=== PATIENT | female | born 1930 | race Caucasian/White ===

== ENCOUNTER 2017-07-28 10:55 | Emergency (ER) | payer MEDICARE ==
[~2017-07-28] VITALS: Ht 162.6 cm; Wt 90.7 kg
[~2017-07-28 10:55] MED LIST: ALLOPURINOL300 MG PO; ASPIR-LOW81 MG PO; COUMADIN3 MG PO; DOXEPIN HCL10 MG; DOXEPIN HCL50 MG PO; DULCOLAX STOOL100 MG PO; GELNIQUE92 GM; GLIMEPIRIDE1 MG PO; KLOR-CON 1010 MEQ PO; LASIX20 MG PO; LASIX40 MG PO; LEVOTHYROXINE50 MCG PO; MAG-OXIDE400 MG PO; MECLIZINE HCL12.5 MG PO; METAXALONE800 MG PO; METOPROLOL SUCC25 MG; MULTI-VITAMIN1 EACH; NITROGLYCERIN0.4 MG SL; NORCO 10MG-325MG1 EA PO; OMEPRAZOLE20 M1 PO; OXYBUTYNIN CHLOR5 MG PO; PANTOPRAZOLE SO40 MG PO; PLAVIX75 MG PO; POTASSIUM CHLO20 ME1 PO; PRAVASTATIN SOD40 MG PO; SENNA-S TABLET1 EA PO; TEKTURNA HCT 31 EACH PO; TEKTURNA300 MG PO; TOPROL XL25 MG PO; TOPROL XL50 MG PO; WARFARIN SODIU2.5 MG PO; WARFARIN SODIUM2 MG PO; ZOCOR20 MG PO; ZOFRAN ODT4 MG
[2017-07-28 11:43] LABS: BASOPHILS # (AUTO) 0.1 (0.0-0.1); BASOPHILS % 0.6 % (0.0-1.0); EOSINOPHILS # (AUTO) 0.2 (0.0-0.4); HEMATOCRIT 39.5 % (34.2-44.1); HEMOGLOBIN 12.1 g/dL (12.0-16.0); LYMPHOCYTES # (AUTO) 1.6 (1.0-3.2); LYMPHOCYTES % 15.4 % (18.0-39.1); MEAN CORPUSCULAR HEMOGLOBIN 24.5 pg (28-32); MEAN CORPUSCULAR HGB CONC 30.6 g/dL (31-35); MEAN CORPUSCULAR VOLUME 80.1 fL (81-99); MONOCYTES % 9.1 % (4.4-11.3); NEUTROPHILS # (AUTO) 7.6 (2.1-6.9); NEUTROPHILS % 72.5 % (38.7-80.0); PLATELET COUNT 228 x10e3/uL (140-360); RED BLOOD COUNT 4.93 x10e6/uL (3.6-5.1); RED CELL DISTRIBUTION WIDTH 17.3 % (11.7-14.4)
--- NOTE | 2017-07-28 12:25 | Diagnostic Imaging Report ---
History:Weakness, vertigo Comparison studies:None Technique: Axial images were obtained from the skull base to the vertex. Coronal and sagittal images reconstructed from the axial data. Intravenous contrast: None Findings: Scalp/skull: No abnormalities. Extra-axial spaces: Prominent subarachnoid spaces along the frontal convexity. No masses. No fluid collections. Brain sulci: Mildly prominent. Ventricles: Mild compensatory dilatation. No hydrocephalus. Parenchyma: A few mild hypodensities in the supratentorial white matter are small vessel ischemic changes. No masses, hemorrhage, acute or chronic cortical vascular insults. Sellar/suprasellar region: No abnormalities. Craniocervical junction: Patent foramen magnum. No Chiari one malformation. Incidental findings: Atherosclerotic calcifications in the carotid siphons . Partial opacification of the right mastoid air cells. Impression: No acute abnormalities. Chronic findings: 1. Moderate generalized volume loss. 2. Mild supratentorial white matter small vessel ischemic changes. Signed by: Dr. Jamaal Alfaro M.D. on 07/28/2017 5:28 PM
--- NOTE | 2017-07-28 12:34 | Diagnostic Imaging Report ---
PROCEDURE:ABDOMEN ACUTE SERIES W/PA CXR TECHNIQUE:Supine and upright AP abdomen; PA chest INDICATION:Constipation; weakness COMPARISON:None. FINDINGS: Lungs: Lungs are clear and symmetric with inflated. No pleural effusions. Normal heart size. 2-lead pacemaker of the left hemithorax; leads intact. Intact skeleton. Bilateral shoulder arthroplasty. Normal bowel gas pattern. Cholecystectomy clips. No evidence of organomegaly or ascites. Multilevel degenerative disc disease. CONCLUSION: No acute abnormality of the chest or abdomen. Dictated by: Cholo Sandoval M.D. on 07/28/2017 at 12:38 Electronically approved by: Cholo Sandoval M.D. on 07/28/2017 at 12:38
[2017-07-28 13:05] LABS: ALANINE AMINOTRANSFERASE 11 IU/L (0-55); ALBUMIN 3.8 g/dL (3.5-5.0); ALBUMIN/GLOBULIN RATIO 1.2 (0.8-2.0); ALKALINE PHOSPHATASE 79 IU/L (40-150); ANION GAP 14.9 mmol/L (8-16); BLOOD UREA NITROGEN 20 mg/dL (7-26); BUN/CREATININE RATIO 13 (6-25); CARBON DIOXIDE 32 mmol/L (22-29); CHLORIDE 96 mmol/L (98-107); CREATINE KINASE 43 IU/L (29-168); CREATININE, SERUM 1.55 mg/dL (0.57-1.11); EST GLOMERULAR FILTRATION RATE 32 ML/MIN (60-); GLUCOSE 260 mg/dL (74-118); MAGNESIUM 1.8 MG/DL (1.3-2.1); POTASSIUM 3.9 mmol/L (3.5-5.1); SODIUM 139 mmol/L (136-145)
[2017-07-28 13:27] LABS: INR 1.1; PARTIAL THROMBOPLASTIN TIME 24.2 seconds (23.8-35.5); PROTHROMBIN TIME 12.5 seconds (11.9-14.5)
[2017-07-28] MEDS ORDERED: CITRATE OF MAGNESIA 300ML BOTTLE PO NR (15:00)
[2017-07-28] MEDS ORDERED: MINERAL OIL 132 ML BTL PR ONE (15:45)
[2017-07-28] MEDS ORDERED: LIDOCAINE JELLY 2% 10ML URO-JET TOP PRN (16:15)
[2017-07-28] MEDS ORDERED: LIDOCAINE HCL 2% JELLY 5 ML TUBE ONE (16:15)
[2017-07-28] MEDS: LIDOCAINE VISC 2% SOLN 15 ML UDC TOP ONE ×2 (16:27→16:28)
== END 2017-07-28 18:12 | disposition home or self-care (01) ==
LOC: ER 10:55
DX: R42 Dizziness and giddiness (principal); R55 Syncope and collapse; K59.00 Constipation, unspecified; I10 Essential (primary) hypertension; E11.9 Type 2 diabetes mellitus without complications; I50.9 Heart failure, unspecified; K21.9 Gastro-esophageal reflux disease without esophagitis; Z95.0 Presence of cardiac pacemaker; Z95.5 Presence of coronary angioplasty implant and graft
CPT/HCPCS: 36415; 70450; 74022; 80053; 82550; 82553; 83735; 84484; 85025; 85610; 85730; 93005; 99284; J2001

== ENCOUNTER → 2017-10-25 | Outpatient (CLI) | payer MEDICARE, OTHER ==
[~2017-10-25] MED LIST changes: +IOPAMIDOL 370 MG/ML 200 ML INFUS..BTL INJ ONE; +SODIUM CHLORIDE 0.9% 250ML 500 ML ONE; +SODIUM CHLORIDE 0.9% 50ML 50 ML ONE
[2017-10-25 12:42] LABS: CREATININE, SERUM 1.31 mg/dL (0.57-1.11)
== END ==
LOC: CT 11:35
PROVIDERS: ATTEND Surgery
DX: R22.1 Localized swelling, mass and lump, neck (principal)
CPT/HCPCS: 36415; 70491; 82565; 84520; 96360; J7050; Q9967

== ENCOUNTER 2017-10-28 10:45 | Emergency (ER) | payer MEDICARE, OTHER ==
[~2017-10-28] VITALS: Ht 162.6 cm; Wt 90.7 kg
[~2017-10-28 10:45] MED LIST changes: -IOPAMIDOL 370 MG/ML 200 ML INFUS..BTL INJ ONE; -SODIUM CHLORIDE 0.9% 250ML 500 ML ONE; -SODIUM CHLORIDE 0.9% 50ML 50 ML ONE
== END 2017-10-28 13:17 | disposition home or self-care (01) ==
LOC: ER 10:45
DX: R06.00 Dyspnea, unspecified (principal); E07.9 Disorder of thyroid, unspecified
CPT/HCPCS: 99283

== ENCOUNTER 2017-11-21 11:04 | Emergency (ER) | payer MEDICARE, OTHER ==
[~2017-11-21] VITALS: Ht 162.6 cm; Wt 90.7 kg
[2017-11-21 12:31] LABS: BASOPHILS % 0.4 % (0.0-1.0); EOSINOPHILS # (AUTO) 0.2 (0.0-0.4); EOSINOPHILS % 2.2 % (0.0-6.0); HEMATOCRIT 38.7 % (34.2-44.1); HEMOGLOBIN 11.8 g/dL (12.0-16.0); LYMPHOCYTES # (AUTO) 1.7 (1.0-3.2); LYMPHOCYTES % 16.8 % (18.0-39.1); MEAN CORPUSCULAR HEMOGLOBIN 24.3 pg (28-32); MEAN CORPUSCULAR HGB CONC 30.5 g/dL (31-35); MEAN CORPUSCULAR VOLUME 79.8 fL (81-99); MONOCYTES # (AUTO) 1.3 (0.2-0.8); NEUTROPHILS # (AUTO) 6.7 (2.1-6.9); NEUTROPHILS % 67.2 % (38.7-80.0); PLATELET COUNT 238 x10e3/uL (140-360); RED BLOOD COUNT 4.85 x10e6/uL (3.6-5.1); RED CELL DISTRIBUTION WIDTH 16.6 % (11.7-14.4)
[2017-11-21 12:55] LABS: ALBUMIN 3.6 g/dL (3.5-5.0); ANION GAP 18.2 mmol/L (8-16); CALCIUM 10.4 mg/dL (8.4-10.2); CREATININE, SERUM 1.38 mg/dL (0.57-1.11); POTASSIUM 4.2 mmol/L (3.5-5.1)
[2017-11-21 12:56] LABS: ALBUMIN/GLOBULIN RATIO 1.1 (0.8-2.0)
[2017-11-21 13:05] LABS: INR 2.61; PROTHROMBIN TIME 29.8 seconds (11.9-14.5)
[2017-11-21] MEDS ORDERED: SODIUM CHLORIDE 0.9% 1000ML 1,000 ML IV STA (14:25)
[2017-11-21] MEDS ORDERED: CLINDAMYCIN PHOS 900MG/ 50ML 50 ML IV STA (16:21)
== END 2017-11-21 18:33 | disposition home or self-care (01) ==
LOC: ER 11:04
DX: L03.115 Cellulitis of right lower limb (principal); R26.2 Difficulty in walking, not elsewhere classified; E11.9 Type 2 diabetes mellitus without complications; Z85.72 Personal history of non-Hodgkin lymphomas
CPT/HCPCS: 36415; 80053; 83605; 85025; 85610; 93971; 99284; J7030

== ENCOUNTER 2017-12-15 01:59 | Inpatient (IN) | payer MEDICARE, OTHER ==
[~2017-12-15] VITALS: Ht 162.6 cm; Wt 85.8 kg
[2017-12-15] MEDS ORDERED: ONDANSETRON HCL INJ 2 MG/ML VIAL IV STA (02:26)
[2017-12-15 02:27] LABS: EOSINOPHILS # (AUTO) 0.2 (0.0-0.4); EOSINOPHILS % 0.3 % (0.0-6.0); HEMATOCRIT 41.6 % (34.2-44.1); HEMOGLOBIN 13.1 g/dL (12.0-16.0); LYMPHOCYTES # (AUTO) 1.6 (1.0-3.2); LYMPHOCYTES % 2.9 % (18.0-39.1); MEAN CORPUSCULAR HGB CONC 31.5 g/dL (31-35); MEAN CORPUSCULAR VOLUME 79.5 fL (81-99); MONOCYTES # (AUTO) 0.3 (0.2-0.8); MONOCYTES % 0.5 % (4.4-11.3); NEUTROPHILS # (AUTO) 44.7 (2.1-6.9); PLATELET COUNT 158 x10e3/uL (140-360); RED BLOOD COUNT 5.23 x10e6/uL (3.6-5.1); RED CELL DISTRIBUTION WIDTH 17.5 % (11.7-14.4)
[2017-12-15] MEDS ORDERED: APIXABAN PO (02:31)
[2017-12-15] MEDS ORDERED: VITAMIN D32000 UNI1 PO (02:32)
[2017-12-15] MEDS ORDERED: DRISDOL PO (02:33)
[2017-12-15] MEDS ORDERED: ROXICODONE15 MG PO (02:34)
[2017-12-15] MEDS ORDERED: SIMVASTATIN20 MG PO (02:35)
[2017-12-15] MEDS ORDERED: SENOKOT8.6 MG PO (02:35)
[2017-12-15] MEDS ORDERED: JANUVIA100 MG PO (02:36)
[2017-12-15] MEDS ORDERED: LEVOTHYROXINE88 MCG PO (02:37)
[2017-12-15] MEDS ORDERED: DOXEPIN HCL25 MG PO (02:37)
[2017-12-15] MEDS ORDERED: LASIX40 MG PO (02:38)
[2017-12-15] MEDS ORDERED: ULORIC40 MG PO (02:38)
[2017-12-15] MEDS ORDERED: MECLIZINE HCL25 MG PO (02:39)
[2017-12-15] MEDS ORDERED: MAGNESIUM OXID400 MG PO (02:39)
[2017-12-15] MEDS ORDERED: TOPROL XL50 MG PO (02:40)
[2017-12-15] MEDS ORDERED: OXYBUTYNIN CHLOR5 M1 PO (02:41)
[2017-12-15] MEDS ORDERED: ZOFRAN ODT4 MG PO (02:41)
[2017-12-15] MEDS ORDERED: PANTOPRAZOLE SO40 MG PO (02:42)
[2017-12-15] MEDS ORDERED: OXYBUTYNIN CHLOR5 MG PO (02:42)
[2017-12-15 02:43] LABS: CLARITY,URINE CLOUDY (CLEAR); COLOR,URINE YELLOW (YELLOW); LEUKOCYTE ESTERASE ,URINE 2+ (NEGATIVE); NITRITE,URINE NEGATIVE (NEGATIVE)
[2017-12-15] MEDS ORDERED: POTASSIUM CHLO10 ME1 PO (02:43)
[2017-12-15 02:44] LABS: BACTERIA,URINE MODERATE /HPF; BILIRUBIN,URINE NEGATIVE (NEGATIVE); EPITHELIAL CELLS,URINE FEW /LPF; KETONES,URINE NEGATIVE (NEGATIVE); PROTEIN,URINE DIPSTICK TRACE (NEGATIVE); RENAL EPITHELIAL CELLS,URINE FEW; TRANSITIONAL EPI CELLS,URINE MODERATE; URINE UROBILINOGEN 0.2 mg/dL (0.2 - 1); WBC,URINE (MAN) >50 /HPF (0-5)
[2017-12-15] MEDS ORDERED: PROCHLORPERAZIN10 MG PO (02:45)
[2017-12-15 02:47] LABS: ALBUMIN 3.5 g/dL (3.5-5.0); ALBUMIN/GLOBULIN RATIO 1.5 (0.8-2.0); ANION GAP 17.6 mmol/L (8-16); CALCIUM 9.7 mg/dL (8.4-10.2); CREATININE, SERUM 1.49 mg/dL (0.57-1.11); POTASSIUM 3.6 mmol/L (3.5-5.1)
[2017-12-15 02:53] LABS: CREATINE KINASE MB 0.8 ng/mL (0-5.0)
--- NOTE | 2017-12-15 03:04 | Diagnostic Imaging Report ---
EXAMINATION: CHEST SINGLE (PORTABLE) INDICATION: Palpitations. COMPARISON: Chest CT 01/15/2017 FINDINGS: AP view TUBES and LINES: Left chest wall cardiac pacer with intact leads overlying the right atrium and right ventricle. Right upper extremity PICC tip overlies the SVC. LUNGS: Lungs are well inflated. Lungs are clear. There is no evidence of pneumonia or pulmonary edema. PLEURA: No pleural effusion or pneumothorax. HEART AND MEDIASTINUM: The cardiomediastinal silhouette is unremarkable. Artery stent. Aortic arch calcifications. BONES AND SOFT TISSUES: No acute osseous lesion. Bilateral shoulder prostheses. Soft tissues are unremarkable. UPPER ABDOMEN: No free air under the diaphragm. IMPRESSION: No acute thoracic abnormality. Signed by: DR. Pancho Landin MD on 12/15/2017 3:01 AM
[2017-12-15] MEDS ORDERED: CEFTRIAXONE SOD 1 GM VIAL IV SCH (03:30)
[2017-12-15 03:34] LABS: BAND NEUTROPHILS % (MANUAL) 2 %; HYPERSEGMENTED NEUTROPHILS FEW; LYMPHOCYTES % (MANUAL) 6 % (19-48); MONOCYTES % (MANUAL) 2 % (3.4-9.0); NEUTROPHILS % (MANUAL) 90 % (40-74); PLATELET ESTIMATE ADEQUATE; PLATELET MORPHOLOGY COMMENT FEW LARGE; RBC MORPHOLOGY COMMENT NORMAL
[2017-12-15] MEDS ORDERED: PROCHLORPERAZINE MALEATE TAB 10 MG TAB PO PRN (03:45)
[2017-12-15] MEDS ORDERED: ERGOCALCIFEROL 50,000 UNIT CAP PO SCH (03:45)
[2017-12-15] MEDS ORDERED: DEXTROSE 50% SYRINGE 50 ML IV PRN (03:45)
[2017-12-15] MEDS ORDERED: SODIUM CHLORIDE 0.9% 1000ML 1,000 ML IV ONE (03:45)
[2017-12-15] MEDS ORDERED: MECLIZINE HCL 12.5 MG TAB PO PRN (03:45)
[2017-12-15 04:00] VITALS: BP 134/63
[2017-12-15] MEDS: INSULIN REGULAR, HUMAN 100 UNIT/1 ML 3ML VIAL SQ SCH ×4 (07:30→21:00)
[2017-12-15] MEDS: LEVOTHYROXINE SODIUM 88 MCG TAB PO SCH (07:30)
[2017-12-15 08:01] VITALS: BP 141/63
[2017-12-15] MEDS ORDERED: FUROSEMIDE 40 MG TAB PO SCH (09:00)
[2017-12-15 09:35] VITALS: BP 141/63
[2017-12-15] MEDS: OXYBUTYNIN CHLORIDE 5 MG TAB PO SCH (09:50)
[2017-12-15] MEDS: MAGNESIUM OXIDE 400 MG TAB PO SCH ×2 (09:55→17:00)
[2017-12-15] MEDS: FEBUXOSTAT 80 MG TAB PO SCH (09:55)
[2017-12-15] MEDS: POTASSIUM CHLORIDE 10MEQ EA PO SCH ×2 (09:55→17:00)
[2017-12-15] MEDS: SENNOSIDES 8.6 MG TAB PO SCH ×2 (09:55→17:00)
[2017-12-15] MEDS: OXYBUTYNIN CHLORIDE XL 5 MG TAB PO SCH (09:55)
[2017-12-15] MEDS: METOPROLOL SUCCINATE 50 MG TAB XL PO SCH (09:55)
[2017-12-15] MEDS: PANTOPRAZOLE SOD 40 MG TABEC PO SCH (09:55)
[2017-12-15] MEDS: APIXAB 2.5 MG TABLET PO SCH ×2 (09:55→18:09)
[2017-12-15] MEDS: CHOLECALCIFEROL 1,000 UNIT TAB PO SCH (09:55)
--- NOTE | 2017-12-15 10:02 | History and Physical ---
PRIMARY CARE PROVIDER: Dr. Tracy Escamilla CHIEF COMPLAINT: Severe leukocytosis secondary to Neupogen treatment with non-Hodgkin's lymphoma recently treated with chemotherapy associated with urinary tract infection and hematuria. SUMMARY: Patient is an 87-year-old female who was admitted at [facility] for non-Hodgkin's lymphoma treatment. The patient did receive aggressive chemotherapy at the facility. Chemotherapy was started last and then went home on Tuesday. Apparently, she was having increase episode of dizziness and not feeling well, palpitations, fever, which brought the patient to the emergency room for evaluation. Patient's WBC was 52.28. The patient was given Neupogen on her chemotherapy treatment. Patient also has a urinalysis showing that she has 2+ leukocyte esterase with greater than 50 wbcs along with trace blood. The patient also had a chest x-ray done without any gross infiltrate or acute abnormality. The patient's condition was discussed with her oncologist at [facility], Dr. Weinberg. He recommended the patient to be admitted to the hospital for IV antibiotic treatment given that the patient recently had chemotherapy and also monitoring the leukocytosis. The patient is otherwise stable at this time. PAST MEDICAL HISTORY: Non-Hodgkin's lymphoma diagnosed in 2016, diabetes, type 2, on insulin therapy, chronic atrial fibrillation, anticoagulant therapy, left upper chest permanent pacemaker, dyslipidemia, hypertension, obesity, chronic kidney disease, gout, osteoarthritis, chronic pain syndrome, opioid dependency. PAST SURGICAL HISTORY: Total right knee replacement, permanent pacemaker, appendectomy, cholecystectomy, multiple lower back surgeries, rotator cuff repair, and supraclavicular lymph node biopsy was diagnosed. The patient with lymphoma. ALLERGIES: ADHESIVE TAPE, ALLOPURINOL, BUSPIRONE, CODEINE, ERYTHROMYCIN BASE, NEXIUM, PREVACID, REGLAN, AND PENTAZOCINE. HOME MEDICATIONS: Patient on doxepin, Uloric, Lasix, levothyroxine, magnesium oxide, meclizine, metoprolol, ondansetron, oxybutynin, oxycodone, Protonix, potassium, Senokot, simvastatin, Januvia, Eliquis, . REVIEW OF SYSTEMS: As above. PHYSICAL EXAMINATION VITAL SIGNS: Temperature is 97.2, blood pressure 141/63, pulse rate 74, respirations 20. GENERAL: The patient is not in acute distress. She is awake. HEENT: Normocephalic, anicteric and anicteric. NECK: Supple grossly. PULMONARY: Diminished breath sounds without any wheezing. CARDIOVASCULAR: Regular rate and rhythm. ABDOMEN: Soft and obese. EXTREMITIES: Right PICC line in right upper extremity. Lower extremities with no edema. No cyanosis. NEUROLOGICAL: No focal deficits. LABORATORY: WBC is 57.3, hemoglobin 13, hematocrit 42, and platelets 158,000. Chemistry: Sodium is 138, potassium 3.6, chloride 96, bicarb 20, BUN 33, creatinine 1.5, glucose 181. IMPRESSION 1. Severe leukocytosis: Post chemotherapy with Neupogen. 2. Urinary tract infection with hematuria: May contribute to the patient's symptoms and increase in white cell count. 3. Lymphoma: Ongoing chemotherapy treatment. 4. Multiple chronic baseline problems. PLAN 1. Continue with antibiotic treatment. 2. Repeat lab work tomorrow due to leukocytosis. 3. Continue with her home medications with adjustment in insulin sliding scale coverage and repeat lab work. Job#: [id number] RI cc:TRACY ESCAMILLA MD
[2017-12-15] MEDS: OXYCODONE HCL IR 5 MG TAB PO PRN ×2 (10:50→20:06)
[2017-12-15] MEDS: ONDANSETRON HCL INJ 2 MG/ML VIAL IV PRN ×2 (11:11→17:15)
[2017-12-15 12:18] VITALS: BP 181/78
[2017-12-15] MEDS: CEFTRIAXONE SOD 1 GM VIAL IV SCH (15:37)
[2017-12-15 16:00] VITALS: BP 140/64
[2017-12-15 20:00] VITALS: BP 128/58
[2017-12-15] MEDS: DOXEPIN HCL 25 MG CAP PO SCH (22:41)
[2017-12-15] MEDS: SIMVASTATIN 20 MG TAB PO SCH (22:41)
[2017-12-16] VITALS: BP 141/60
[2017-12-16] MEDS: CEFTRIAXONE SOD 1 GM VIAL IV SCH ×2 (03:00→15:58)
[2017-12-16] MEDS: OXYCODONE HCL IR 5 MG TAB PO PRN ×3 (03:31→19:43)
[2017-12-16 04:00] VITALS: BP 124/58
[2017-12-16 06:04] LABS: BASOPHILS # (AUTO) 0.1 (0.0-0.1); BASOPHILS % 0.5 % (0.0-1.0); EOSINOPHILS # (AUTO) 0.2 (0.0-0.4); EOSINOPHILS % 0.8 % (0.0-6.0); HEMATOCRIT 33.7 % (34.2-44.1); HEMOGLOBIN 10.4 g/dL (12.0-16.0); LYMPHOCYTES # (AUTO) 1.1 (1.0-3.2); LYMPHOCYTES % 4.1 % (18.0-39.1); MEAN CORPUSCULAR HEMOGLOBIN 24.6 pg (28-32); MEAN CORPUSCULAR HGB CONC 30.9 g/dL (31-35); MEAN CORPUSCULAR VOLUME 79.7 fL (81-99); MONOCYTES # (AUTO) 0.1 (0.2-0.8); MONOCYTES % 0.5 % (4.4-11.3); NEUTROPHILS # (AUTO) 21.6 (2.1-6.9); PLATELET COUNT 112 x10e3/uL (140-360); RED BLOOD COUNT 4.23 x10e6/uL (3.6-5.1); RED CELL DISTRIBUTION WIDTH 17.1 % (11.7-14.4)
[2017-12-16 06:22] LABS: ALBUMIN 2.8 g/dL (3.5-5.0); ALBUMIN/GLOBULIN RATIO 1.3 (0.8-2.0); ANION GAP 13.6 mmol/L (8-16); CALCIUM 8.9 mg/dL (8.4-10.2); CREATININE, SERUM 1.16 mg/dL (0.57-1.11); POTASSIUM 3.6 mmol/L (3.5-5.1)
[2017-12-16] MEDS: LEVOTHYROXINE SODIUM 88 MCG TAB PO SCH (07:30)
[2017-12-16] MEDS: INSULIN REGULAR, HUMAN 100 UNIT/1 ML 3ML VIAL SQ SCH ×4 (07:30→21:44)
[2017-12-16] MEDS: CHOLECALCIFEROL 1,000 UNIT TAB PO SCH (09:00)
[2017-12-16] MEDS: FEBUXOSTAT 80 MG TAB PO SCH (09:00)
[2017-12-16] MEDS: APIXAB 2.5 MG TABLET PO SCH ×2 (09:00→16:31)
[2017-12-16] MEDS: POTASSIUM CHLORIDE 10MEQ EA PO SCH ×2 (09:00→16:31)
[2017-12-16] MEDS: METOPROLOL SUCCINATE 50 MG TAB XL PO SCH (09:00)
[2017-12-16] MEDS: OXYBUTYNIN CHLORIDE XL 5 MG TAB PO SCH (09:00)
[2017-12-16] MEDS: PANTOPRAZOLE SOD 40 MG TABEC PO SCH (09:00)
[2017-12-16] MEDS: SENNOSIDES 8.6 MG TAB PO SCH ×2 (09:00→16:32)
[2017-12-16] MEDS: OXYBUTYNIN CHLORIDE 5 MG TAB PO SCH (09:00)
[2017-12-16 10:07] VITALS: BP 117/58
[2017-12-16] MEDS: MAGNESIUM OXIDE 400 MG TAB PO SCH ×2 (10:07→16:31)
[2017-12-16] MEDS: ONDANSETRON HCL INJ 2 MG/ML VIAL IV PRN (11:20)
[2017-12-16 14:00] LABS: LYMPHOCYTES % (MANUAL) 6 % (19-48); METAMYELOCYTES % (MANUAL) 2 % (0-0); MONOCYTES % (MANUAL) 2 % (3.4-9.0); MYELOCYTES % (MANUAL) 4 % (0-0); NEUTROPHILS % (MANUAL) 83 % (40-74)
[2017-12-16 14:01] LABS: ANISOCYTOSIS SLIGHT; HYPOCHROMASIA SLIGHT; PLATELET ESTIMATE SLIGHTLY DECREASED; PLATELET MORPHOLOGY COMMENT FEW LARGE; RBC MORPHOLOGY COMMENT NORMAL
[2017-12-16 14:54] VITALS: BP 124/58
[2017-12-16 16:15] VITALS: BP 133/69
[2017-12-16 16:51] LABS: ANION GAP 15.5 mmol/L (8-16); CALCIUM 9.2 mg/dL (8.4-10.2); CREATININE, SERUM 1.21 mg/dL (0.57-1.11); POTASSIUM 4.5 mmol/L (3.5-5.1)
[2017-12-16 20:00] VITALS: BP 138/60
[2017-12-16] MEDS: SIMVASTATIN 20 MG TAB PO SCH (21:43)
[2017-12-16] MEDS: DOXEPIN HCL 25 MG CAP PO SCH (21:43)
[2017-12-17] VITALS (7 sets, daily range): BP systolic 110–166; BP diastolic 56–68
[2017-12-17] MEDS: OXYCODONE HCL IR 5 MG TAB PO PRN ×2 (01:43→09:30)
[2017-12-17] MEDS: CEFTRIAXONE SOD 1 GM VIAL IV SCH ×2 (04:00→15:00)
[2017-12-17] MEDS: LEVOTHYROXINE SODIUM 88 MCG TAB PO SCH (06:32)
[2017-12-17] MEDS: INSULIN REGULAR, HUMAN 100 UNIT/1 ML 3ML VIAL SQ SCH ×5 (07:30→21:10)
[2017-12-17] MEDS: APIXAB 2.5 MG TABLET PO SCH ×2 (09:24→17:20)
[2017-12-17] MEDS: OXYBUTYNIN CHLORIDE 5 MG TAB PO SCH (09:24)
[2017-12-17] MEDS: OXYBUTYNIN CHLORIDE XL 5 MG TAB PO SCH (09:24)
[2017-12-17] MEDS: PANTOPRAZOLE SOD 40 MG TABEC PO SCH (09:25)
[2017-12-17] MEDS: SENNOSIDES 8.6 MG TAB PO SCH ×2 (09:25→17:20)
[2017-12-17] MEDS: MAGNESIUM OXIDE 400 MG TAB PO SCH ×2 (09:25→17:20)
[2017-12-17] MEDS: FEBUXOSTAT 80 MG TAB PO SCH (09:25)
[2017-12-17] MEDS: POTASSIUM CHLORIDE 10MEQ EA PO SCH ×2 (09:25→17:20)
[2017-12-17] MEDS: CHOLECALCIFEROL 1,000 UNIT TAB PO SCH (09:26)
[2017-12-17] MEDS: METOPROLOL SUCCINATE 50 MG TAB XL PO SCH (09:27)
[2017-12-17] MEDS ORDERED: FUROSEMIDE 40 MG TAB PO ONE (13:00)
[2017-12-17 13:14] LABS: BASOPHILS % 0.5 % (0.0-1.0); EOSINOPHILS # (AUTO) 0.2 (0.0-0.4); EOSINOPHILS % 2.7 % (0.0-6.0); HEMATOCRIT 34.4 % (34.2-44.1); HEMOGLOBIN 10.6 g/dL (12.0-16.0); LYMPHOCYTES # (AUTO) 1.1 (1.0-3.2); MEAN CORPUSCULAR HEMOGLOBIN 24.5 pg (28-32); MEAN CORPUSCULAR HGB CONC 30.8 g/dL (31-35); MEAN CORPUSCULAR VOLUME 79.4 fL (81-99); MONOCYTES # (AUTO) 0.1 (0.2-0.8); MONOCYTES % 1.4 % (4.4-11.3); NEUTROPHILS # (AUTO) 3.3 (2.1-6.9); NEUTROPHILS % 56.4 % (38.7-80.0); PLATELET COUNT 131 x10e3/uL (140-360); RED BLOOD COUNT 4.33 x10e6/uL (3.6-5.1)
[2017-12-17 13:58] LABS: ANISOCYTOSIS SLIGHT; BAND NEUTROPHILS % (MANUAL) 5 %; LYMPHOCYTES % (MANUAL) 16 % (19-48); METAMYELOCYTES % (MANUAL) 2 % (0-0); MICROCYTOSIS SLIGHT; MONOCYTES % (MANUAL) 2 % (3.4-9.0); MYELOCYTES % (MANUAL) 3 % (0-0); NEUTROPHILS % (MANUAL) 67 % (40-74); PLATELET ESTIMATE SLIGHTLY DECREASED; PLATELET MORPHOLOGY COMMENT NORMAL; PROMYELOCYTES % (MANUAL) 1 % (0-0)
[2017-12-17] MEDS: HYDROCODONE/APAP 10MG-325MG TAB PO PRN (20:24)
[2017-12-17] MEDS: SIMVASTATIN 20 MG TAB PO SCH (20:25)
[2017-12-17] MEDS: DOXEPIN HCL 25 MG CAP PO SCH (20:25)
[2017-12-18] VITALS (7 sets, daily range): BP systolic 107–142; BP diastolic 50–62
[2017-12-18] MEDS: CEFTRIAXONE SOD 1 GM VIAL IV SCH ×2 (02:40→15:00)
[2017-12-18] MEDS: HYDROCODONE/APAP 10MG-325MG TAB PO PRN ×3 (02:46→20:08)
[2017-12-18 06:16] LABS: EOSINOPHILS # (AUTO) 0.2 (0.0-0.4); EOSINOPHILS % 12.6 % (0.0-6.0); HEMATOCRIT 30.3 % (34.2-44.1); HEMOGLOBIN 9.2 g/dL (12.0-16.0); LYMPHOCYTES # (AUTO) 0.5 (1.0-3.2); LYMPHOCYTES % 34.8 % (18.0-39.1); MEAN CORPUSCULAR HEMOGLOBIN 24.2 pg (28-32); MEAN CORPUSCULAR HGB CONC 30.4 g/dL (31-35); MEAN CORPUSCULAR VOLUME 79.7 fL (81-99); MONOCYTES % 1.5 % (4.4-11.3); NEUTROPHILS # (AUTO) 0.7 (2.1-6.9); NEUTROPHILS % 51.1 % (38.7-80.0); PLATELET COUNT 89 x10e3/uL (140-360); RED CELL DISTRIBUTION WIDTH 17.1 % (11.7-14.4)
[2017-12-18] MEDS: LEVOTHYROXINE SODIUM 88 MCG TAB PO SCH (07:30)
[2017-12-18] MEDS: INSULIN REGULAR, HUMAN 100 UNIT/1 ML 3ML VIAL SQ SCH ×3 (07:30→16:30)
[2017-12-18] MEDS: FEBUXOSTAT 80 MG TAB PO SCH (09:00)
[2017-12-18] MEDS: APIXAB 2.5 MG TABLET PO SCH ×2 (09:59→16:39)
[2017-12-18] MEDS: OXYBUTYNIN CHLORIDE XL 5 MG TAB PO SCH (09:59)
[2017-12-18] MEDS: OXYBUTYNIN CHLORIDE 5 MG TAB PO SCH (09:59)
[2017-12-18] MEDS: METOPROLOL SUCCINATE 50 MG TAB XL PO SCH (10:00)
[2017-12-18] MEDS: CHOLECALCIFEROL 1,000 UNIT TAB PO SCH (10:00)
[2017-12-18] MEDS: FUROSEMIDE 40 MG TAB PO SCH (10:00)
[2017-12-18] MEDS: POTASSIUM CHLORIDE 10MEQ EA PO SCH ×2 (10:00→16:39)
[2017-12-18] MEDS: SENNOSIDES 8.6 MG TAB PO SCH ×2 (10:00→16:39)
[2017-12-18] MEDS: PANTOPRAZOLE SOD 40 MG TABEC PO SCH (10:00)
[2017-12-18] MEDS: MAGNESIUM OXIDE 400 MG TAB PO SCH ×2 (10:00→16:39)
[2017-12-18 10:23] LABS: BAND NEUTROPHILS % (MANUAL) 1 %; EOSINOPHILS % (MANUAL) 12 % (0-7); LYMPHOCYTES % (MANUAL) 47 % (19-48); MONOCYTES % (MANUAL) 3 % (3.4-9.0); NEUTROPHILS % (MANUAL) 37 % (40-74)
[2017-12-18 10:24] LABS: PLATELET ESTIMATE SLIGHTLY DECREASED; PLATELET MORPHOLOGY COMMENT NORMAL; RBC MORPHOLOGY COMMENT NORMAL
[2017-12-18] MEDS: SIMVASTATIN 20 MG TAB PO SCH (20:10)
[2017-12-18] MEDS: DOXEPIN HCL 25 MG CAP PO SCH (20:10)
[2017-12-19] VITALS (8 sets, daily range): BP systolic 111–142; BP diastolic 54–65
[2017-12-19] MEDS: CEFTRIAXONE SOD 1 GM VIAL IV SCH ×2 (03:38→15:34)
[2017-12-19] MEDS: HYDROCODONE/APAP 10MG-325MG TAB PO PRN ×3 (05:30→21:27)
[2017-12-19 06:19] LABS: EOSINOPHILS # (AUTO) 0.1 (0.0-0.4); HEMATOCRIT 29.2 % (34.2-44.1); HEMOGLOBIN 9.1 g/dL (12.0-16.0); LYMPHOCYTES # (AUTO) 0.6 (1.0-3.2); LYMPHOCYTES % 70.1 % (18.0-39.1); MEAN CORPUSCULAR HEMOGLOBIN 24.7 pg (28-32); MEAN CORPUSCULAR HGB CONC 31.2 g/dL (31-35); MEAN CORPUSCULAR VOLUME 79.1 fL (81-99); MONOCYTES # (AUTO) 0.1 (0.2-0.8); MONOCYTES % 5.7 % (4.4-11.3); NEUTROPHILS # (AUTO) 0.1 (2.1-6.9); NEUTROPHILS % 15.1 % (38.7-80.0); PLATELET COUNT 106 x10e3/uL (140-360); RED BLOOD COUNT 3.69 x10e6/uL (3.6-5.1)
[2017-12-19 06:31] LABS: CALCIUM 8.9 mg/dL (8.4-10.2); CREATININE, SERUM 1.13 mg/dL (0.57-1.11)
[2017-12-19] MEDS: INSULIN REGULAR, HUMAN 100 UNIT/1 ML 3ML VIAL SQ SCH ×4 (07:30→21:25)
[2017-12-19] MEDS: LEVOTHYROXINE SODIUM 88 MCG TAB PO SCH (08:17)
[2017-12-19] MEDS: FUROSEMIDE 40 MG TAB PO SCH (09:00)
[2017-12-19] MEDS: OXYBUTYNIN CHLORIDE 5 MG TAB PO SCH (09:00)
[2017-12-19] MEDS: SENNOSIDES 8.6 MG TAB PO SCH ×2 (09:13→18:29)
[2017-12-19] MEDS: APIXAB 2.5 MG TABLET PO SCH ×2 (09:13→18:29)
[2017-12-19] MEDS: PANTOPRAZOLE SOD 40 MG TABEC PO SCH (09:13)
[2017-12-19] MEDS: OXYBUTYNIN CHLORIDE XL 5 MG TAB PO SCH (09:13)
[2017-12-19] MEDS: POTASSIUM CHLORIDE 10MEQ EA PO SCH ×2 (09:13→18:29)
[2017-12-19] MEDS: MAGNESIUM OXIDE 400 MG TAB PO SCH ×2 (09:13→18:29)
[2017-12-19] MEDS: METOPROLOL SUCCINATE 50 MG TAB XL PO SCH (09:14)
[2017-12-19] MEDS: CHOLECALCIFEROL 1,000 UNIT TAB PO SCH (09:14)
[2017-12-19] MEDS: FEBUXOSTAT 80 MG TAB PO SCH (09:14)
[2017-12-19] MEDS: ONDANSETRON HCL INJ 2 MG/ML VIAL IV PRN (15:34)
[2017-12-19] MEDS ORDERED: FILGRASTIM 300 MCG/ML VIAL SC SCH (17:30)
[2017-12-19] MEDS: SIMVASTATIN 20 MG TAB PO SCH (21:25)
[2017-12-19] MEDS: DOXEPIN HCL 25 MG CAP PO SCH (21:25)
[2017-12-20] VITALS (8 sets, daily range): BP systolic 102–166; BP diastolic 56–70
[2017-12-20] MEDS: CEFTRIAXONE SOD 1 GM VIAL IV SCH ×2 (03:39→15:37)
[2017-12-20 06:59] LABS: EOSINOPHILS # (AUTO) 0.1 (0.0-0.4); EOSINOPHILS % 13.5 % (0.0-6.0); HEMATOCRIT 28.3 % (34.2-44.1); HEMOGLOBIN 8.7 g/dL (12.0-16.0); LYMPHOCYTES # (AUTO) 0.5 (1.0-3.2); MEAN CORPUSCULAR HEMOGLOBIN 24.4 pg (28-32); MEAN CORPUSCULAR HGB CONC 30.7 g/dL (31-35); MEAN CORPUSCULAR VOLUME 79.5 fL (81-99); MONOCYTES % 5.4 % (4.4-11.3); NEUTROPHILS # (AUTO) 0.1 (2.1-6.9); NEUTROPHILS % 8.1 % (38.7-80.0); PLATELET COUNT 101 x10e3/uL (140-360); RED BLOOD COUNT 3.56 x10e6/uL (3.6-5.1); RED CELL DISTRIBUTION WIDTH 16.9 % (11.7-14.4)
[2017-12-20 07:08] LABS: ANION GAP 14.2 mmol/L (8-16); CALCIUM 8.2 mg/dL (8.4-10.2); CREATININE, SERUM 1.21 mg/dL (0.57-1.11); POTASSIUM 4.2 mmol/L (3.5-5.1)
[2017-12-20] MEDS: INSULIN REGULAR, HUMAN 100 UNIT/1 ML 3ML VIAL SQ SCH ×4 (07:30→21:00)
[2017-12-20] MEDS: LEVOTHYROXINE SODIUM 88 MCG TAB PO SCH (08:03)
[2017-12-20] MEDS: PANTOPRAZOLE SOD 40 MG TABEC PO SCH (08:03)
[2017-12-20] MEDS ORDERED: FILGRASTIM 300 MCG/ML VIAL SC SCH (09:00)
[2017-12-20] MEDS: OXYBUTYNIN CHLORIDE 5 MG TAB PO SCH (09:00)
[2017-12-20] MEDS: FUROSEMIDE 40 MG TAB PO SCH (09:00)
[2017-12-20 09:09] LABS: BLAST CELLS % MANUAL 2; EOSINOPHILS % (MANUAL) 18 % (0-7); LYMPHOCYTES % (MANUAL) 48 % (19-48); MONOCYTES % (MANUAL) 4 % (3.4-9.0); NEUTROPHILS % (MANUAL) 18 % (40-74); PLATELET MORPHOLOGY COMMENT FEW LARGE; RBC MORPHOLOGY COMMENT NORMAL
[2017-12-20 09:10] LABS: PLATELET ESTIMATE ADEQUATE
[2017-12-20] MEDS: OXYBUTYNIN CHLORIDE XL 5 MG TAB PO SCH (09:10)
[2017-12-20] MEDS: APIXAB 2.5 MG TABLET PO SCH ×2 (09:11→18:10)
[2017-12-20] MEDS: MAGNESIUM OXIDE 400 MG TAB PO SCH ×2 (09:11→18:11)
[2017-12-20] MEDS: METOPROLOL SUCCINATE 50 MG TAB XL PO SCH (09:11)
[2017-12-20] MEDS: FEBUXOSTAT 80 MG TAB PO SCH (09:11)
[2017-12-20] MEDS: POTASSIUM CHLORIDE 10MEQ EA PO SCH ×2 (09:11→18:11)
[2017-12-20] MEDS: SENNOSIDES 8.6 MG TAB PO SCH ×2 (09:11→17:00)
[2017-12-20] MEDS: CHOLECALCIFEROL 1,000 UNIT TAB PO SCH (09:11)
[2017-12-20] MEDS: FILGRASTIM 480 MCG/0.8 ML SYRINGE SQ SCH (10:14)
[2017-12-20] MEDS: HYDROCODONE/APAP 10MG-325MG TAB PO PRN ×2 (11:50→22:13)
[2017-12-20] MEDS: SIMVASTATIN 20 MG TAB PO SCH (22:13)
[2017-12-20] MEDS: DOXEPIN HCL 25 MG CAP PO SCH (22:13)
[2017-12-21] VITALS (7 sets, daily range): BP systolic 117–134; BP diastolic 56–68
[2017-12-21] MEDS: CEFTRIAXONE SOD 1 GM VIAL IV SCH ×2 (03:35→15:32)
[2017-12-21 05:59] LABS: BASOPHILS % 0.9 % (0.0-1.0); EOSINOPHILS # (AUTO) 0.1 (0.0-0.4); EOSINOPHILS % 10.5 % (0.0-6.0); HEMATOCRIT 28.2 % (34.2-44.1); HEMOGLOBIN 8.7 g/dL (12.0-16.0); LYMPHOCYTES # (AUTO) 0.7 (1.0-3.2); LYMPHOCYTES % 62.3 % (18.0-39.1); MEAN CORPUSCULAR HEMOGLOBIN 24.6 pg (28-32); MEAN CORPUSCULAR HGB CONC 30.9 g/dL (31-35); MEAN CORPUSCULAR VOLUME 79.9 fL (81-99); MONOCYTES # (AUTO) 0.2 (0.2-0.8); MONOCYTES % 13.2 % (4.4-11.3); NEUTROPHILS # (AUTO) 0.2 (2.1-6.9); NEUTROPHILS % 13.1 % (38.7-80.0); PLATELET COUNT 111 x10e3/uL (140-360); RED BLOOD COUNT 3.53 x10e6/uL (3.6-5.1); RED CELL DISTRIBUTION WIDTH 17.2 % (11.7-14.4)
[2017-12-21] MEDS: LEVOTHYROXINE SODIUM 88 MCG TAB PO SCH (07:30)
[2017-12-21] MEDS: INSULIN REGULAR, HUMAN 100 UNIT/1 ML 3ML VIAL SQ SCH ×4 (07:30→21:00)
[2017-12-21 08:06] LABS: LYMPHOCYTES % (MANUAL) 78 % (19-48); MONOCYTES % (MANUAL) 5 % (3.4-9.0); NEUTROPHILS % (MANUAL) 16 % (40-74)
[2017-12-21 08:07] LABS: EOSINOPHILS % (MANUAL) 1 % (0-7)
[2017-12-21 08:08] LABS: ANISOCYTOSIS SLIGHT; OVALOCYTES FEW; PLATELET ESTIMATE SLIGHTLY DECREASED; PLATELET MORPHOLOGY COMMENT NORMAL; RBC MORPHOLOGY COMMENT NORMAL
[2017-12-21] MEDS: OXYBUTYNIN CHLORIDE XL 5 MG TAB PO SCH (09:30)
[2017-12-21] MEDS: OXYBUTYNIN CHLORIDE 5 MG TAB PO SCH (09:30)
[2017-12-21] MEDS: FUROSEMIDE 40 MG TAB PO SCH (09:31)
[2017-12-21] MEDS: APIXAB 2.5 MG TABLET PO SCH ×2 (09:31→17:33)
[2017-12-21] MEDS: MAGNESIUM OXIDE 400 MG TAB PO SCH ×2 (09:31→17:33)
[2017-12-21] MEDS: SENNOSIDES 8.6 MG TAB PO SCH ×2 (09:31→17:33)
[2017-12-21] MEDS: PANTOPRAZOLE SOD 40 MG TABEC PO SCH (09:31)
[2017-12-21] MEDS: FEBUXOSTAT 80 MG TAB PO SCH (09:32)
[2017-12-21] MEDS: METOPROLOL SUCCINATE 50 MG TAB XL PO SCH (09:32)
[2017-12-21] MEDS: CHOLECALCIFEROL 1,000 UNIT TAB PO SCH (09:32)
[2017-12-21] MEDS: FILGRASTIM 480 MCG/0.8 ML SYRINGE SQ SCH (09:32)
[2017-12-21] MEDS: POTASSIUM CHLORIDE 10MEQ EA PO SCH ×2 (09:33→17:33)
[2017-12-21] MEDS: HYDROCODONE/APAP 10MG-325MG TAB PO PRN ×3 (09:48→20:59)
[2017-12-21] MEDS: DOXEPIN HCL 25 MG CAP PO SCH (21:00)
[2017-12-21] MEDS: SIMVASTATIN 20 MG TAB PO SCH (21:00)
[2017-12-22] VITALS: BP 107/50
[2017-12-22] MEDS: CEFTRIAXONE SOD 1 GM VIAL IV SCH (02:50)
[2017-12-22 04:00] VITALS: BP 140/64
[2017-12-22] MEDS: LEVOTHYROXINE SODIUM 88 MCG TAB PO SCH (07:05)
[2017-12-22 07:30] VITALS: BP 130/62
[2017-12-22] MEDS: INSULIN REGULAR, HUMAN 100 UNIT/1 ML 3ML VIAL SQ SCH ×2 (07:30→11:30)
[2017-12-22 08:28] VITALS: BP 130/62
[2017-12-22] MEDS: POTASSIUM CHLORIDE 10MEQ EA PO SCH (09:42)
[2017-12-22] MEDS: SENNOSIDES 8.6 MG TAB PO SCH (09:42)
[2017-12-22] MEDS: APIXAB 2.5 MG TABLET PO SCH (09:42)
[2017-12-22] MEDS: OXYBUTYNIN CHLORIDE XL 5 MG TAB PO SCH (09:42)
[2017-12-22] MEDS: PANTOPRAZOLE SOD 40 MG TABEC PO SCH (09:42)
[2017-12-22] MEDS: MAGNESIUM OXIDE 400 MG TAB PO SCH (09:42)
[2017-12-22] MEDS: FUROSEMIDE 40 MG TAB PO SCH (09:42)
[2017-12-22] MEDS: OXYBUTYNIN CHLORIDE 5 MG TAB PO SCH (09:42)
[2017-12-22] MEDS: CHOLECALCIFEROL 1,000 UNIT TAB PO SCH (09:43)
[2017-12-22] MEDS: FILGRASTIM 480 MCG/0.8 ML SYRINGE SQ SCH (09:43)
[2017-12-22] MEDS: FEBUXOSTAT 80 MG TAB PO SCH (09:43)
[2017-12-22] MEDS: METOPROLOL SUCCINATE 50 MG TAB XL PO SCH (09:43)
--- NOTE | 2017-12-22 09:54 | Discharge Summary ---
CONSULTANTS: Dr. Alvin Galindo PCP: Dr. Tracy Escamilla FINAL DIAGNOSES 1. Leukocytosis secondary to Neupogen treatment after chemotherapy at [facility]. 2. Baseline non-Hodgkin's lymphoma with as above. 3. Urinary tract infection associated with weakness and fever. 4. Leukopenia, post chemotherapy, now required Neupogen treatment. SUMMARY: This is an 87-year-old female with non-Hodgkin's lymphoma. Patient did receive multiple doses of treatment at [facility]. Patient came to the emergency room for fever and basically urinary tract infection associated with also generalized weakness. Her WBC was 57,000 due to Neupogen treatment recently. Patient was expected to have leukopenia because of post chemotherapy. Therefore, the patient was admitted to the hospital for close monitoring while she received IV antibiotics. The patient subsequently had leukopenia with WBC of 0.87. Dr. Galindo saw the patient and started the patient on Neupogen treatment. Her WBC now is 1.1. The patient will transfer to [place]. Continue with antibiotics and Neupogen treatment for a short course. The patient will need outpatient chemotherapy for her non-Hodgkin's lymphoma subsequently. Currently, the patient is stable to transfer today. Job#: [id number] SARAH
[2017-12-22 11:59] VITALS: BP 116/53
[2017-12-22] MEDS: HYDROCODONE/APAP 10MG-325MG TAB PO PRN (13:29)
[2017-12-22 15:59] VITALS: BP 112/57
== END 2017-12-22 16:00 | DRG 815 ==
LOC: ER 01:59 → ERHOLD 03:46 → MED/SURG 04:25
PROVIDERS: ADMIT Internal Medicine; ATTEND Internal Medicine
DX: D72.829 Elevated white blood cell count, unspecified (principal); N30.01 Acute cystitis with hematuria; C85.90 Non-Hodgkin lymphoma, unspecified, unspecified site; D70.1 Agranulocytosis secondary to cancer chemotherapy; T45.1X5A Adverse effect of antineoplastic and immunosuppressive drugs, initial encounter; R00.2 Palpitations; E11.9 Type 2 diabetes mellitus without complications; Z79.4 Long term (current) use of insulin; Z95.0 Presence of cardiac pacemaker; I48.2 Chronic atrial fibrillation; Z79.01 Long term (current) use of anticoagulants; E78.5 Hyperlipidemia, unspecified; G89.4 Chronic pain syndrome; Z88.5 Allergy status to narcotic agent; Z88.8 Allergy status to other drugs, medicaments and biological substances; Z91.048 Other nonmedicinal substance allergy status; R53.1 Weakness; E86.0 Dehydration; D64.9 Anemia, unspecified
CPT/HCPCS: 36415; 71045; 80048; 80053; 81001; 82550; 82553; 82784; 82948; 83880; 84484; 84550; 85025; 87040; 87086; 93005; 96360; 96361; 97139; 99284; J0696; J1442; J1642; J2405; J7030